=== PATIENT | female | born 1930 | race Hispanic/Latino ===

== ENCOUNTER 2019-10-23 16:34 | Emergency (ER) | payer BC, MEDICARE ==
[2019-10-23 18:09] LABS: Basophils % (Auto) 0.4 % (0.0-1.8); Eosinophils # (Auto) 0.1 K/mm3 (0.0-0.4); Eosinophils % (Auto) 0.8 % (0.0-4.3); Hematocrit 38.1 % (30.3-42.9); Hemoglobin 12.8 gm/dl (10.1-14.3); Lymphocytes # (Auto) 0.9 K/mm3 (1.2-5.4); Mean Corpuscular HGB Conc 34 % (30-34); Mean Corpuscular Volume 89 fl (79-97); Monocytes # (Auto) 0.5 K/mm3 (0.0-0.8); Monocytes % (Auto) 5.5 % (0.0-7.3); Platelet Count 314 K/mm3 (140-440); Red Blood Count 4.29 M/mm3 (3.65-5.03); Red Cell Distribution Width 14.2 % (13.2-15.2)
[2019-10-23 18:24] LABS: Calcium 9.5 mg/dL (8.4-10.2)
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
[2019-10-23] MEDS ORDERED: ONDANSETRON 4 MG/2 ML INJ IV ONE (18:50)
[2019-10-23] MEDS ORDERED: MORPHINE 4 MG/1 ML INJ IV ONE ×2 (18:50→19:45)
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
[2019-10-23 20:45] VITALS: BP 187/80
[2019-10-23] MEDS ORDERED: HYDROmorphone 1 MG/1 ML INJ IV ONE (21:00)
[2019-10-23] MEDS ORDERED: HYDROmorphone 1 MG/1 ML INJ ONE (21:19)
== END 2019-10-23 22:00 | disposition other institution (70) ==
LOC: EDBD 16:34 → ED 16:34
DX: S12.100A Unspecified displaced fracture of second cervical vertebra, initial encounter for closed fracture (principal); R51 Headache; I10 Essential (primary) hypertension; E78.00 Pure hypercholesterolemia, unspecified; Z88.5 Allergy status to narcotic agent; V49.59XA Passenger injured in collision with other motor vehicles in traffic accident, initial encounter; Y93.89 Activity, other specified; Y92.410 Unspecified street and highway as the place of occurrence of the external cause; Y99.8 Other external cause status
CPT/HCPCS: 36415; 70450; 72125; 80048; 85025; 93005; 93010; 96374; 96375; 96376; 99291; J1170; J2270; J2405